=== PATIENT | female | born 1960 | race Caucasian/White ===

== ENCOUNTER 2016-12-22 11:28 | Inpatient (IN) | payer OTHER ==
[~2016-12-22] VITALS: Ht 157 cm; Wt 45.0 kg
--- NOTE | ~2016-12-22 | CON ---
[place], [place] REPORT OF CONSULTATION NAME: JAMIE CORLEY UNIT #: [id number] ROOM: 411 DOCTOR: ISAIAH MARTIN MD BIRTHDATE: [birth year] DOS: 12/24/2016 HISTORY OF PRESENT ILLNESS: This is a 56-year-old -Citizen Of [place] woman who had an acute anterior wall myocardial infarction in 2009 and a drug-eluting stent was deployed in the proximal ostium of the left anterior descending artery. At that time, her EF was said to be 29%. I performed a diagnostic heart catheterization in 04/2015, which demonstrated an LV ejection fraction of 65% and very mild in-stent restenosis and no other obvious lesion was identified. She had an echocardiogram in 02/2015 in my office, which demonstrated an LV ejection fraction of 60%. She has COPD, but has never had heart failure, stroke, cancer, diabetes, kidney problems, or any GI problems. SURGICAL HISTORY: Includes D and C and tubal ligation. SOCIAL HISTORY: She smokes half a pack of cigarettes per day and works in the construction industry. Her job is fairly heavy. REVIEW OF SYSTEMS: She had developed some aches and pains and felt tired and weak, had some sniffles, and then started coughing. She did not expectorate much sputum. She had no chills; however, she had some left anterior and left lateral chest pain. This was sharp, but there is also a little dullness to it. It did not get worse with breathing. It did not radiate into the neck or arm and she did not have any right-sided chest discomfort or pain. She had no palpitations, sweating, nausea, or dizziness with the chest pain. She has not had any orthopnea, although she propped up. No swelling of the legs. She has not had any nausea, abdominal pain, or blood in the stools. She has not had any neurological symptoms. HOME MEDICATIONS: Amlodipine 5 mg daily, carvedilol 12.5 mg b.i.d., famotidine 20 mg daily, and 325 mg of aspirin daily. PHYSICAL EXAMINATION: GENERAL: This reveals a patient who is very slim, healthy looking, alert, and oriented. Her complexion is fine. There is no jaundice or anemia. There is no thyromegaly, finger clubbing. VITAL SIGNS: Pulse is 76 and regular, blood pressure 115/51. NECK: Normal JVP. No bruit in the neck. HEART: There is no cardiomegaly. Auscultation did not reveal any murmurs or rubs and good pedal pulses and no edema in lower extremities. EXTREMITIES: Femoral pulses are palpable. LUNGS: Breath sounds are fairly decent bilaterally and no adventitious sounds were present. There is no obvious chest wall tenderness. ABDOMEN: Supple, nontender. No organomegaly or bruit. DIAGNOSTIC STUDIES: An ECG on admission demonstrated normal sinus rhythm with minimal ST-segment depression in inferior leads and lateral chest leads and an old anteroseptal myocardial infarction and other ECG done just now demonstrated no additional changes. An ECG of 2012 was pretty much the same, i.e., some minimal ST- segment depression in the above-mentioned leads. [place], [place] REPORT OF CONSULTATION NAME: JAMIE CORLEY UNIT #: [id number] ROOM: 411 DOCTOR: ISAIAH MARTIN MD BIRTHDATE: [birth year] LABORATORY DATA: Troponin I on admission was 0.33 and has trended down with the last being 0.16. Chemistry panel is otherwise pretty much normal. CBC is also normal. IMPRESSION: This patient with known coronary artery disease and risk factors, still smokes cigarettes. She probably had an acute viral syndrome. Troponin I is significantly elevated and has trended down that this is the likelihood of significant coronary artery stenosis. ECG is somewhat abnormal. RECOMMENDATIONS: I think it is best to assess her with diagnostic heart catheterization and selective coronary angiogram. I discussed the procedure with her. Risks and the benefits including CVA, NM, , hematoma, vascular injury, adrenal insufficiency were discussed. She understands and would like to proceed. I thank you for this consult. I recommend to load her with antiplatelet, either Effient or Brilinta or Plavix. I will have her transferred to [facility] early tomorrow morning for the procedure. ISAIAH MARTIN MD CM:CONSTR:REPORT OF CONSULTATION 0826 12/24/16 1012 interface
[~2016-12-22 11:28] MED LIST: ASCRIPTIN325 MG PO; COREG12.5 M1 PO; COREG25 MG PO; FISH OIL500 MG PO; HYDROCODONE BIT1 T11 PO; LOVAZA1 GM PO; NORVASC5 MG PO; OYSTER CALCIUM/1 TA1 PO; PEPCID20 MG PO; PERCOCET 325 MG1 TA2 PO; VITAMIN B1100 MCG/ML IM; VITAMIN D50000 I3 PO
[2016-12-22 11:53] VITALS: BP 152/66
[2016-12-22 12:23] LABS: HEMATOCRIT 47.9 % (37.0-47.0); HEMOGLOBIN 16.5 g/dl (12.0-16.0); MEAN CORPUSCULAR HGB 33.1 pg (27.0-31.0); MEAN CORPUSCULAR HGB CONC 34.4 g/dl (33.0-37.0); PLATELET COUNT AUTOMATED 96 10*3/uL (130-400); RED BLOOD COUNT 4.99 10*6/uL (4.10-5.10); RED CELL DISTRI WIDTH 12.5 % (0-14.5); WHITE BLOOD COUNT 13.6 10*3/uL (4.8-10.8)
[2016-12-22 12:40] LABS: ALBUMIN 3.5 gm/dl (3.1-4.5); ALKALINE PHOSPHATASE 64 U/L (45-117); BILIRUBIN, TOTAL 0.7 mg/dl (0.2-1.0); BUN 9 mg/dl (7-24); CARBON DIOXIDE 27 mmol/L (21-32); CHLORIDE 100 mmol/L (98-107); EST GLOM FILT AFRICAN AMERICAN > 60 ml/min; GLUCOSE 108 mg/dL (65-99); POTASSIUM 3.5 mmol/L (3.5-5.1); SGOT/AST 31 IU/L (3-35); SGPT/ALT 27 U/L (12-78); SODIUM 135 mmol/L (136-145); TOTAL PROTEIN 7.7 gm/dL (6.4-8.2)
[2016-12-22 12:42] LABS: TROPONIN I 0.332 ng/ml (<0.045)
[2016-12-22 12:44] LABS: ATYPICAL LYMPHS 1 % (0-0); LYMPHOCYTE # 1.6 10*3/uL (1.3-4.4); MONOCYTE # 0.8 10*3/uL (0.1-1.0); NEUTROPHIL # 11.2 10*3/uL (2.3-7.9); NEUTROPHILS 82 % (47-73); PLASMA CELL 1 % (0-0); TOTAL CELLS COUNTED 100 #CELLS
[2016-12-22 12:47] LABS: PLATELET SUFFICIENCY LOW (NORMAL)
[2016-12-22 14:05] VITALS: BP 137/65
[2016-12-22 16:00] VITALS: BP 128/56
[2016-12-22 18:22] LABS: CKMB 0.5 ng/ml (0.5-3.6)
[2016-12-22 18:27] LABS: TROPONIN I 0.274 ng/ml (<0.045)
[2016-12-22 20:00] VITALS: BP 119/54
[2016-12-23] VITALS: BP 116/57
[2016-12-23 00:33] LABS: CKMB 0.6 ng/ml (0.5-3.6)
[2016-12-23 00:34] LABS: TROPONIN I 0.231 ng/ml (<0.045)
[2016-12-23 06:24] LABS: CKMB 0.6 ng/ml (0.5-3.6)
[2016-12-23 06:27] LABS: TROPONIN I 0.165 ng/ml (<0.045)
[2016-12-23 06:47] LABS: ALBUMIN 2.6 gm/dl (3.1-4.5); ALKALINE PHOSPHATASE 63 U/L (45-117); BILIRUBIN, TOTAL 0.4 mg/dl (0.2-1.0); BUN 7 mg/dl (7-24); CARBON DIOXIDE 26 mmol/L (21-32); CHLORIDE 109 mmol/L (98-107); CHOLESTEROL 142 mg/dL (<200); EST GLOM FILT AFRICAN AMERICAN > 60 ml/min; GLUCOSE 139 mg/dL (65-99); HDL CHOLESTEROL 39 mg/dl (40-60); LDL CHOLESTEROL 92 mg/dL (9-159); POTASSIUM 3.6 mmol/L (3.5-5.1); SGOT/AST 33 IU/L (3-35); SGPT/ALT 29 U/L (12-78); SODIUM 142 mmol/L (136-145); TOTAL PROTEIN 6.2 gm/dL (6.4-8.2); TRIGLYCERIDES 55 mg/dl (<150); VLDL CHOLESTEROL 11 mg/dL (6-40)
[2016-12-23 06:50] LABS: INTERNATIONAL NORM RATIO 1.1 (2.0-3.5); PROTHROMBIN TIME 11.7 SECONDS (9.0-12.4)
[2016-12-23 06:50] LABS: HEMOGLOBIN A1c 5.3 % (4.8-5.6)
[2016-12-23 06:52] LABS: MEAN CELL VOLUME 98.3 fl (81.0-99.0); MEAN CORPUSCULAR HGB 32.9 pg (27.0-31.0); MEAN CORPUSCULAR HGB CONC 33.5 g/dl (33.0-37.0); MEAN PLATELET VOLUME 11.3 fl (9.6-12.3); PLATELET COUNT AUTOMATED 93 10*3/uL (130-400); RED BLOOD COUNT 4.19 10*6/uL (4.10-5.10); RED CELL DISTRI WIDTH 12.8 % (0-14.5); WHITE BLOOD COUNT 9.4 10*3/uL (4.8-10.8)
[2016-12-23 06:53] LABS: HEMATOCRIT 41.2 % (37.0-47.0); HEMOGLOBIN 13.8 g/dl (12.0-16.0)
[2016-12-23 06:54] LABS: THYROID STIM HORMONE (HS) 0.148 uIU/ml (0.358-4.75)
[2016-12-23 07:29] LABS: BURR CELLS FEW; LYMPHOCYTE # 0.5 10*3/uL (1.3-4.4); NEUTROPHIL # 8.9 10*3/uL (2.3-7.9); NEUTROPHILS 95 % (47-73); PLATELET SUFFICIENCY LOW (NORMAL); ROULEAUX SLIGHT; TOTAL CELLS COUNTED 100 #CELLS
[2016-12-23 08:00] VITALS: BP 136/72
[2016-12-23 08:06] LABS: FOLIC ACID 13.26 ng/mL (>5.38); VITAMIN D, 25-HYDROXY 47.9 ng/mL (30-100)
[2016-12-23 12:00] VITALS: BP 136/74
[2016-12-23 16:00] VITALS: BP 129/76
[2016-12-23 20:00] VITALS: BP 136/74
[2016-12-24] VITALS: BP 115/51
[2016-12-24 06:24] LABS: BASO % 0.1 % (0.0-1.0); HEMATOCRIT 42.4 % (37.0-47.0); HEMOGLOBIN 14.3 g/dl (12.0-16.0); IG # 0.1 10*3/uL (0.0-0.1); LYMPH # 0.8 10*3/uL (1.3-4.4); LYMPH % 7.6 % (27.0-41.0); MEAN CELL VOLUME 97.5 fl (81.0-99.0); MEAN CORPUSCULAR HGB 32.9 pg (27.0-31.0); MEAN CORPUSCULAR HGB CONC 33.7 g/dl (33.0-37.0); MEAN PLATELET VOLUME 11.4 fl (9.6-12.3); MONO # 0.3 10*3/uL (0.1-1.0); MONO % 2.5 % (3.0-9.0); NEUT # 9.2 10*3/uL (2.3-7.9); NEUT % 89.2 % (47.0-73.0); RED BLOOD COUNT 4.35 10*6/uL (4.10-5.10); RED CELL DISTRI WIDTH 12.7 % (0-14.5); WHITE BLOOD COUNT 10.3 10*3/uL (4.8-10.8)
[2016-12-24 06:27] LABS: PLATELET COUNT AUTOMATED 156 10*3/uL (130-400)
[2016-12-24 06:44] LABS: FREE T4 1.26 ng/dl (0.76-1.46); THYROID STIM HORMONE (HS) 0.223 uIU/ml (0.358-4.75)
[2016-12-24 08:00] VITALS: BP 132/70
[2016-12-24 12:00] VITALS: BP 146/66
[2016-12-24] MEDS ORDERED: CARVEDILOL25 MG PO (12:59)
[2016-12-24] MEDS ORDERED: ATORVASTATIN CA80 M1 PO (12:59)
[2016-12-24] MEDS ORDERED: ASPIRIN CHEWABL81 MG PO (12:59)
[2016-12-24] MEDS ORDERED: D-1000 185 MG-11 TAB PO (12:59)
[2016-12-24 16:00] VITALS: BP 128/61
[2016-12-24 20:00] VITALS: BP 128/61
[2016-12-25] VITALS: BP 134/60
[2016-12-25 04:00] VITALS: BP 135/60
== END 2016-12-25 07:07 | disposition other institution (70) | DRG 871 ==
LOC: ED 11:28 → 4E 13:35 → EDHOLD 13:35 → 4E 14:03
PROVIDERS: Internal Medicine; Physician Assistant
DX: A41.9 Sepsis, unspecified organism (principal); J18.9 Pneumonia, unspecified organism; E43 Unspecified severe protein-calorie malnutrition; E87.1 Hypo-osmolality and hyponatremia; Z68.1 Body mass index [BMI] 19.9 or less, adult; I25.118 Atherosclerotic heart disease of native coronary artery with other forms of angina pectoris; I25.10 Atherosclerotic heart disease of native coronary artery without angina pectoris; Z71.6 Tobacco abuse counseling; Z98.51 Tubal ligation status; Z82.49 Family history of ischemic heart disease and other diseases of the circulatory system; Z82.0 Family history of epilepsy and other diseases of the nervous system; Z88.5 Allergy status to narcotic agent; Z79.899 Other long term (current) drug therapy; I25.2 Old myocardial infarction; Z95.818 Presence of other cardiac implants and grafts; I25.9 Chronic ischemic heart disease, unspecified

== ENCOUNTER → 2017-10-26 | Outpatient (CLI) | payer OTHER ==
[~2017-10-26] MED LIST changes: +ASPIRIN CHEWABL81 MG PO; +ATORVASTATIN CA80 M1 PO; +CARVEDILOL25 MG PO; +D-1000 185 MG-11 TAB PO
[2017-10-26 13:14] LABS: BASO # 0.1 10*3/uL (0.0-0.1); BASO % 0.8 % (0.0-1.0); EOS # 0.1 10*3/uL (0.0-0.4); EOS % 1.2 % (1.0-4.0); HEMATOCRIT 45.9 % (37.0-47.0); HEMOGLOBIN 15.3 g/dl (12.0-16.0); LYMPH # 2.5 10*3/uL (1.3-4.4); LYMPH % 37.2 % (27.0-41.0); MEAN CORPUSCULAR HGB 32.3 pg (27.0-31.0); MEAN CORPUSCULAR HGB CONC 33.3 g/dl (33.0-37.0); MEAN PLATELET VOLUME 10.5 fl (9.6-12.3); MONO # 0.5 10*3/uL (0.1-1.0); MONO % 7.8 % (3.0-9.0); NEUT # 3.5 10*3/uL (2.3-7.9); NEUT % 52.7 % (47.0-73.0); PLATELET COUNT AUTOMATED 226 10*3/uL (130-400); RED BLOOD COUNT 4.73 10*6/uL (4.10-5.10); RED CELL DISTRI WIDTH 12.9 % (0-14.5); WHITE BLOOD COUNT 6.7 10*3/uL (4.8-10.8)
== END | disposition home or self-care (01) ==
LOC: LAB 12:28
PROVIDERS: Internal Medicine Gastroenterology
DX: R19.5 Other fecal abnormalities (principal)

== ENCOUNTER → 2017-11-06 | Outpatient (CLI) | payer OTHER | END | disposition home or self-care (01) | LOC: MAMMO 03:09 | DX: Z12.31 Encounter for screening mammogram for malignant neoplasm of breast (principal) ==

== ENCOUNTER → 2019-04-10 | Outpatient (CLI) | payer OTHER ==
[~2019-04-10] MED LIST changes: +ASPIRIN325 M2 PO; +OYSTER SHELL CA1 T20 PO; +PRILOSEC20 M1 PO
== END | disposition home or self-care (01) ==
LOC: RAD 11:08
DX: R07.81 Pleurodynia (principal); M54.6 Pain in thoracic spine; M81.0 Age-related osteoporosis without current pathological fracture; M54.5 Low back pain; R07.9 Chest pain, unspecified; M25.552 Pain in left hip; D16.8 Benign neoplasm of pelvic bones, sacrum and coccyx; W19.XXXA Unspecified fall, initial encounter

== ENCOUNTER → 2019-07-09 | Outpatient (CLI) | payer OTHER ==
[2019-07-11 18:07] LABS: ALLERGEN CLASS TNTERPRETATION 0 (.); BEEF <0.10 kU/L (<0.35); CLASS INTERPETATION 0 (.); LAMB/MUTTON IGE <0.10 kU/L (<0.35)
[2019-07-12 05:05] LABS: CODFISH, IGE <0.10 kU/L (Class 0); EGG WHITE, IGE <0.10 kU/L (Class 0); MILK (COW), IGE <0.10 kU/L (Class 0); PEANUT, IGE <0.10 kU/L (Class 0); SOYBEAN, IGE <0.10 kU/L (Class 0); WHEAT, IGE <0.10 kU/L (Class 0)
[2019-07-13 06:35] LABS: ALTERNARIA ALTERNATA, IGE <0.10 kU/L (Class 0); AMERICAN ELM, IGE <0.10 kU/L (Class 0); ASPERGILLUS FUMIGATU, IGE <0.10 kU/L (Class 0); BERMUDA GRASS, IGE <0.10 kU/L (Class 0); BIRCH, COMMON SILVER IGE <0.10 kU/L (Class 0); CLADOSPORIUM HERBARU, IGE <0.10 kU/L (Class 0); D FARINAE MITE <0.10 kU/L (Class 0); D PTERONYSSINUS <0.10 kU/L (Class 0); DOG DANDER, IGE <0.10 kU/L (Class 0); IMMUNOGLOBULIN IgE 002170 12 IU/mL (6-495); MAPLE LEAF SYCAMORE, IGE <0.10 kU/L (Class 0); MAPLE/BOX ELDER, IGE <0.10 kU/L (Class 0); MOUSE URINE IGE <0.10 kU/L (Class 0); PENICILLIUM CHRYSOGENUM, IGE <0.10 kU/L (Class 0); ROUGH PIGWEED, IGE <0.10 kU/L (Class 0); SHEEP SORREL (DOCK), IGE <0.10 kU/L (Class 0); SHORT RAGWEED, IGE <0.10 kU/L (Class 0); TIMOTHY, IGE <0.10 kU/L (Class 0); WALNUT TREE, IGE <0.10 kU/L (Class 0); WHITE ASH, IGE <0.10 kU/L (Class 0); WHITE MULBERRY, IGE <0.10 kU/L (Class 0); WHITE OAK, IGE <0.10 kU/L (Class 0)
== END | disposition home or self-care (01) ==
LOC: LAB 12:31
PROVIDERS: Student in an Organized Health Care Education/Training Program
DX: Z88.9 Allergy status to unspecified drugs, medicaments and biological substances (principal)

== ENCOUNTER → 2019-09-05 | Outpatient (CLI) | payer OTHER | END | disposition home or self-care (01) | LOC: MRI 08-25 13:00 | DX: R51 Headache (principal); I10 Essential (primary) hypertension ==

== ENCOUNTER → 2019-10-03 | Outpatient (CLI) | payer OTHER | END | disposition home or self-care (01) | LOC: RAD 11:26 | DX: M25.542 Pain in joints of left hand (principal); M25.541 Pain in joints of right hand; R29.898 Other symptoms and signs involving the musculoskeletal system ==

== ENCOUNTER → 2019-12-04 | Outpatient (CLI) | payer OTHER | END | disposition home or self-care (01) | LOC: RAD 11:40 | DX: M54.9 Dorsalgia, unspecified (principal); M54.2 Cervicalgia ==

== ENCOUNTER → 2020-05-05 | Outpatient (CLI) | payer OTHER | END | disposition home or self-care (01) | LOC: MRI 04-28 11:00 | DX: M48.07 Spinal stenosis, lumbosacral region (principal); M51.36 Other intervertebral disc degeneration, lumbar region; J44.9 Chronic obstructive pulmonary disease, unspecified; M54.42 Lumbago with sciatica, left side; R04.2 Hemoptysis ==

== ENCOUNTER → 2020-07-01 | Outpatient (CLI) | payer OTHER ==
[2020-07-06 13:06] LABS: ALLERGEN CLASS TNTERPRETATION 0 (.); BEEF <0.10 kU/L (<0.35); CLASS INTERPETATION 0 (.); LAMB/MUTTON IGE <0.10 kU/L (<0.35)
== END | disposition home or self-care (01) ==
LOC: LAB 11:37
PROVIDERS: Student in an Organized Health Care Education/Training Program; ATTEND Family Medicine
DX: S99.922A Unspecified injury of left foot, initial encounter (principal); X58.XXXA Exposure to other specified factors, initial encounter; Y93.89 Activity, other specified; Y92.89 Other specified places as the place of occurrence of the external cause; Y99.8 Other external cause status; Z91.018 Allergy to other foods

== ENCOUNTER → 2020-08-09 | Outpatient (CLI) | payer OTHER | END | disposition home or self-care (01) | LOC: RAD 09:19 | PROVIDERS: ATTEND Psychiatry & Neurology Neurology | DX: R51.9 Headache, unspecified (principal) ==

== ENCOUNTER → 2020-10-07 | Outpatient (CLI) | payer OTHER | END | disposition home or self-care (01) | LOC: CT 09:56 | PROVIDERS: ATTEND Internal Medicine Critical Care Medicine | DX: R91.1 Solitary pulmonary nodule (principal) ==

== ENCOUNTER → 2021-01-26 | Outpatient (CLI) | payer MEDICARE, MEDICAID | END | disposition home or self-care (01) | LOC: MAMMO 10:57 | PROVIDERS: ATTEND Family Medicine | DX: Z12.31 Encounter for screening mammogram for malignant neoplasm of breast (principal) ==

== ENCOUNTER → 2021-05-12 | Outpatient (CLI) | payer MEDICARE, MEDICAID | END | disposition home or self-care (01) | LOC: CT 12:52 | PROVIDERS: ATTEND Internal Medicine Critical Care Medicine | DX: J43.9 Emphysema, unspecified (principal); R91.1 Solitary pulmonary nodule; J45.40 Moderate persistent asthma, uncomplicated; Z68.1 Body mass index [BMI] 19.9 or less, adult; J98.4 Other disorders of lung; Z87.891 Personal history of nicotine dependence ==

== ENCOUNTER → 2023-04-24 | Outpatient (CLI) | payer OTHER, MEDICAID | END | disposition home or self-care (01) | LOC: RAD 12:47 | PROVIDERS: ATTEND Nurse Practitioner Family | DX: J44.1 Chronic obstructive pulmonary disease with (acute) exacerbation (principal) ==

== ENCOUNTER → 2023-11-08 | Outpatient (CLI) | payer MEDICARE, MEDICAID ==
[2023-11-08 12:43] LABS: TOTAL PROTEIN 6.8 gm/dL (6.0-8.0); VITAMIN D, 25-HYDROXY 98.2 ng/mL (30-100)
[2023-11-08 12:45] LABS: POTASSIUM 4.7 mmol/L (3.4-5.1); TOTAL PROTEIN 6.8 gm/dL (6.0-8.0)
== END | disposition home or self-care (01) ==
LOC: LAB 11:21
PROVIDERS: Nurse Practitioner Family; ATTEND Internal Medicine Cardiovascular Disease
DX: J44.9 Chronic obstructive pulmonary disease, unspecified (principal); I25.10 Atherosclerotic heart disease of native coronary artery without angina pectoris; E55.9 Vitamin D deficiency, unspecified; E78.2 Mixed hyperlipidemia

== ENCOUNTER → 2023-12-17 | Outpatient (CLI) | payer MEDICARE, MEDICAID | END | disposition home or self-care (01) | LOC: RAD 01:35 → MAMMO 09:00 | PROVIDERS: ATTEND Nurse Practitioner Family | DX: Z12.31 Encounter for screening mammogram for malignant neoplasm of breast (principal); Z13.820 Encounter for screening for osteoporosis; M85.88 Other specified disorders of bone density and structure, other site; N64.89 Other specified disorders of breast; F17.210 Nicotine dependence, cigarettes, uncomplicated; E55.9 Vitamin D deficiency, unspecified; M79.7 Fibromyalgia; I11.9 Hypertensive heart disease without heart failure; Z78.0 Asymptomatic menopausal state ==